=== PATIENT | male | born 1950 | race Caucasian/White ===

== ENCOUNTER 2017-05-05 16:13 | Inpatient (IN) | payer MEDICARE ==
[~2017-05-05] VITALS: Ht 162.6 cm; Wt 74.0 kg
[2017-05-05 16:29] VITALS: BP 106/70; PULSE 72; RESP 16; TEMP 98.8; O2SAT 97
[2017-05-05 17:48] LABS: AUTOMATED NEUTROPHIL # 6.9 TH/MM3 (1.8-7.7); BASOPHIL # 0.1 TH/MM3 (0-0.2); BASOPHIL % 0.8 % (0.0-2.0); EOSINOPHIL # 0.5 TH/MM3 (0-0.4); HEMATOCRIT 43.8 % (39.0-51.0); HEMOGLOBIN 15.4 GM/DL (13.0-17.0); LYMPH % 16.3 % (9.0-44.0); LYMPHOCYTE # 1.8 TH/MM3 (1.0-4.8); MEAN CELL VOLUME 90.9 FL (80.0-100.0); MEAN CORPUSCULAR HEMOGLOBIN 31.9 PG (27.0-34.0); MEAN CORPUSCULAR HGB CONC 35.1 % (32.0-36.0); MEAN PLATELET VOLUME 7.4 FL (7.0-11.0); MONO % 14.2 % (0.0-8.0); MONOCYTE # 1.5 TH/MM3 (0-0.9); NEUT % 63.7 % (16.0-70.0); PLATELET COUNT 301 TH/MM3 (150-450); RED BLOOD COUNT 4.82 MIL/MM3 (4.50-5.90); RED CELL DISTRIBUTION WIDTH 13.5 % (11.6-17.2); WHITE BLOOD COUNT 10.8 TH/MM3 (4.0-11.0)
[2017-05-05 18:03] LABS: ALBUMIN 3.1 GM/DL (3.4-5.0); AST (GOT) 48 U/L (15-37); BICARBONATE 31.7 MEQ/L (21.0-32.0); BLOOD UREA NITROGEN 17 MG/DL (7-18); CALCIUM 9.1 MG/DL (8.5-10.1); CHLORIDE 98 MEQ/L (98-107); CREATININE 1.09 MG/DL (0.60-1.30); GLUCOSE,RANDOM 92 MG/DL (74-106); SODIUM (NA) 136 MEQ/L (136-145)
[2017-05-05 18:04] LABS: ALT (GPT) 112 U/L (12-78)
[2017-05-05 18:06] LABS: ALKALINE PHOSPHATASE 240 U/L (45-117); TOTAL BILIRUBIN ADULT 10.7 MG/DL (0.2-1.0); TOTAL PROTEIN 6.9 GM/DL (6.4-8.2)
[2017-05-05 18:12] LABS: AMORPHOUS SEDIMENT, URINE RARE; BACTERIA, URINE FEW /hpf; BILIRUBIN, URINE LARGE (NEG); BLOOD, URINE NEG (NEG); GLUCOSE,URINE NEG (NEG); KETONE, URINE NEG (NEG); MUCUS URINE MANY /lpf (OCC); NITRITE,URINE NEG (NEG); URINE LEUKOCYTE ESTERASE NEG (NEG)
[2017-05-05 18:14] LABS: URINE COLOR DARK-BROWN (YELLW/STRAW)
--- NOTE | 2017-05-05 18:25 | PD ---
HPI Chief Complaint: Abdominal Pain Time Seen by Provider: 18:25 Travel History International Travel<30 days: No Contact w/Intl Traveler<30days: No Traveled to known affect area: No History of Present Illness HPI 66-year-old male came to the emergency room with history of jaundice and abdominal pain. His is here with him and patient says he has been having the symptoms since December 2016. He sees GI Dr. Pfeiffer. Patient is a drinker but did not have alcohol in past 2 weeks. Today his GI specialist sent him over to the surgeon Dr. Kirkland who did blood test in his office and discovered that patient's liver function tests were elevated and urine looked abnormal. He sent the patient to the emergency room to get an MRCP. There was blood test repeated in the triage and the results are back. Patient says his pain is all over the abdomen. He has not had a bowel movement since Wednesday. Patient has been taking liquid tramadol for his abdominal pain. He is awake and answering questions appropriately. Vital signs are within normal limits. No history of nausea vomiting. Stool up until Wednesday was green in color. No aggravating or relieving factors identified for the abdominal pain or any radiation. [facility] Past Medical History Narrative Medical List of his past medical, surgical, social and family history is reviewed from the nursing note. Social History Tobacco Use: Yes Allergies-Medications (Allergen,Severity, Reaction): Coded Allergies: No Known Allergies (Unverified , 05/05/17) Comments No known drug allergies. Reported Meds & Prescriptions Reported Meds & Active Scripts Active Reported Lansoprazole 30 Mg Capdr 30 Mg PO BID Tramadol (Tramadol HCl) 50 Mg Tab 50 Mg PO Q6H PRN Losartan (Losartan Potassium) 50 Mg Tab 50 Mg PO DAILY Narrative Medication Awaiting for the nurse to do the med reconciliation. Review of Systems Except as stated in HPI: all other systems reviewed are Neg Gastrointestinal: Positive: Abdominal Pain, Constipation Physical Exam Narrative GENERAL: Awake, alert, moderate distress SKIN: Focused skin assessment warm/dry. Jaundice HEAD: Atraumatic. Normocephalic. EYES: Pupils equal and round. Scleral icterus. No injection or drainage. ENT: No nasal bleeding or discharge. Mucous membranes pink and moist. NECK: Trachea midline. No JVD. CARDIOVASCULAR: Regular rate and rhythm. No murmur appreciated. RESPIRATORY: No accessory muscle use. Clear to auscultation. Breath sounds equal bilaterally. GASTROINTESTINAL: Abdomen soft, non-tender, nondistended. Questionable hepatomegaly 3 fingers beneath the costal margin MUSCULOSKELETAL: No obvious deformities. No clubbing. No cyanosis. No edema. NEUROLOGICAL: Awake and alert. No obvious cranial nerve deficits. Motor grossly within normal limits. Normal speech. PSYCHIATRIC: Appropriate mood and affect; insight and judgment normal. Data Data Last Documented VS Orders Orders Complete Blood Count With Diff (05/05/17 16:31) Comprehensive Metabolic Panel (05/05/17 16:31) Lipase (05/05/17 16:31) Urinalysis - C+S If Indicated (05/05/17 16:31) Ct Abd/Pel W Iv Contrast(Rout) (05/05/17 ) Us Abdomen Liver (05/05/17 ) Sodium Chlor 0.9% 1000 Ml Inj (Ns 1000 M (05/05/17 18:30) Afp, Tumor Marker (05/05/17 18:25) Direct Bilirubin (05/05/17 18:25) Admit Order (Ed Use Only) (05/05/17 18:48) Labs Laboratory Tests Test 05/05/17 17:27 05/05/17 17:39 White Blood Count 10.8 TH/MM3 Red Blood Count 4.82 MIL/MM3 Hemoglobin 15.4 GM/DL Hematocrit 43.8 % Mean Corpuscular Volume 90.9 FL Mean Corpuscular Hemoglobin 31.9 PG Mean Corpuscular Hemoglobin Concent 35.1 % Red Cell Distribution Width 13.5 % Platelet Count 301 TH/MM3 Mean Platelet Volume 7.4 FL Neutrophils (%) (Auto) 63.7 % Lymphocytes (%) (Auto) 16.3 % Monocytes (%) (Auto) 14.2 % Eosinophils (%) (Auto) 5.0 % Basophils (%) (Auto) 0.8 % Neutrophils # (Auto) 6.9 TH/MM3 Lymphocytes # (Auto) 1.8 TH/MM3 Monocytes # (Auto) 1.5 TH/MM3 Eosinophils # (Auto) 0.5 TH/MM3 Basophils # (Auto) 0.1 TH/MM3 CBC Comment DIFF FINAL Differential Comment Blood Urea Nitrogen 17 MG/DL Creatinine 1.09 MG/DL Random Glucose 92 MG/DL Total Protein 6.9 GM/DL Albumin 3.1 GM/DL Calcium Level 9.1 MG/DL Alkaline Phosphatase 240 U/L Aspartate Amino Transf (AST/SGOT) 48 U/L Alanine Aminotransferase (ALT/SGPT) 112 U/L Total Bilirubin 10.7 MG/DL Sodium Level 136 MEQ/L Potassium Level 3.7 MEQ/L Chloride Level 98 MEQ/L Carbon Dioxide Level 31.7 MEQ/L Anion Gap 6 MEQ/L Lipase 2477 U/L Urine Color DARK-BROWN Urine Turbidity CLEAR Urine pH 6.0 Urine Specific [place] 1.027 Urine Protein 30 mg/dL Urine Glucose (UA) NEG mg/dL Urine Ketones NEG mg/dL Urine Occult Blood NEG Urine Nitrite NEG Urine Bilirubin LARGE Urine Urobilinogen 2.0 MG/DL Urine Leukocyte Esterase NEG Urine RBC 1 /hpf Urine WBC 1 /hpf Urine Amorphous Sediment RARE Urine Bacteria FEW /hpf Urine Mucus MANY /lpf Microscopic Urinalysis Comment CULT NOT INDICATED MDM Medical Decision Making Medical Screen Exam Complete: Yes Emergency Medical Condition: Yes Medical Record Reviewed: Yes Differential Diagnosis Obstructive jaundice, liver cancer, biliary duct obstruction, hepatitis Narrative Course 6:55 PM all the blood test results are back and the liver enzymes are elevated but the bilirubin is markedly elevated. I have ordered a CT scan of his abdomen and pelvis and liver ultrasound. I discussed the case with the hospitalist was accepted the patient. Procedures EKG Prior to Arrival: No Diagnosis Primary Impression: Abdominal pain Qualified Codes: R10.84 - Generalized abdominal pain Additional Impressions: Hyperbilirubinemia Elevated liver function tests Admitting Information Admitting Physician Requests: Admit Scripts Metronidazole (Metronidazole) 500 Mg Tab 500 MG PO TID for Infection for 7 Days, TAB 0 Refills Prov: Terrence Clark MD 05/08/17 Ciprofloxacin (Ciprofloxacin) 500 Mg Tab 500 MG PO BID for Infection for 7 Days, #14 TAB 0 Refills Prov: Terrence Clark MD 05/08/17 Hilario Tran MD May 05, 2017 18:25
[2017-05-05] MEDS ORDERED: SODIUM CHLOR 0.9% 1000 ML INJ 1,000 ML IV ONE (18:30)
[2017-05-05] MEDS ORDERED: IOHEXOL 350 MG/ML 10 ML VIAL (for RAD DIAG) IVCONTRAST ONE (19:04)
[2017-05-05] MEDS ORDERED: TRAM50TA PO (19:07)
[2017-05-05] MEDS ORDERED: CIPR500T2 PO (19:07)
[2017-05-05] MEDS ORDERED: LANS30CA PO (19:07)
[2017-05-05] MEDS ORDERED: METR1TAB76 PO (19:07)
[2017-05-05] MEDS ORDERED: LOSA50TA PO (19:07)
--- NOTE | 2017-05-05 19:13 | RADRPT ---
EXAM DATE/TIME: 05/05/2017 18:45 [facility] COMPARISON: No previous studies available for comparison. INDICATIONS : Nausea, vomiting and abdominal pain since Wednesday. IV CONTRAST: 100 cc Omnipaque 350 (iohexol) IV ORAL CONTRAST: No oral contrast ingested. RADIATION DOSE: 6.69 CTDIvol (mGy) MEDICAL HISTORY : None SURGICAL HISTORY : None. ENCOUNTER: Initial ACUITY: 4 - 6 days PAIN SCALE: 0/10 LOCATION: abdomen TECHNIQUE: Volumetric scanning of the abdomen and pelvis was performed. Using automated exposure control and ad justment of the mA and/or kV according to patient size, radiation dose was kept as low as reasonably achievable to obtain optimal diagnostic quality images. DICOM format image data is available electro nically for review and comparison. FINDINGS: LOWER LUNGS: The visualized lower lungs are clear. LIVER: Liver has a homogeneous pattern of enhancement. There is a solitary 8mm oval hypodense area in the r ight lobe which probably represents a cyst. There is moderate distention of the central intrahepatic biliary system and dilation of the common bile duct down to the iliac. The cystic duct is also prom inent without evidence of calcified stones in the gallbladder or extrahepatic biliary system. The co mmon bile duct measures up to 12 mm in size. SPLEEN: Normal size without lesion. PANCREAS: Within normal limits. KIDNEYS: Normal in size and shape. There is no mass, stone or hydronephrosis. ADRENAL GLANDS: Within normal limits. VASCULAR: There is no aortic aneurysm. BOWEL/MESENTERY: No dilated loops of small or large bowel. There is interposition of the hepatic flexure of the colon underneath the anterior right hemidiaphragm. Mild amount of stool and gas seen throughout the colon . A few scattered diverticula in the sigmoid colon without radiographic evidence of diverticulitis. ABDOMINAL WALL: Within normal limits. RETROPERITONEUM: There is no lymphadenopathy. BLADDER: No wall thickening or mass. REPRODUCTIVE: Within normal limits. INGUINAL: There is no lymphadenopathy or hernia. MUSCULOSKELETAL: Within normal limits for patient age. CONCLUSION: 1. Dilation of the intra-and extrahepatic biliary system although a down to the ampulla without evide nce of calcified stones. 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 Dax Wells MD on May 05, 2017 at 19:07 Board Certified Radiologist. This report was verified electronically.
[2017-05-05] MEDS ORDERED: traMADol HCL 50 MG TAB PO PRN (19:15)
[2017-05-05] MEDS ORDERED: NALOXONE HCL 0.4 MG/ML AMP IV PUSH PRN (19:15)
[2017-05-05] MEDS ORDERED: SENNOSIDES 8.6 MG TAB PO PRN (19:15)
[2017-05-05] MEDS ORDERED: ONDANSETRON HCL 4 MG/2 ML VIAL IVP PRN (19:15)
[2017-05-05] MEDS ORDERED: BISACODYL 10 MG SUPP RECTAL PRN (19:15)
[2017-05-05] MEDS ORDERED: MAGNESIUM HYDROXIDE SUSP 30 ML CUP PO PRN (19:15)
[2017-05-05] MEDS ORDERED: LACTULOSE SYRUP 20 GM/30 ML CUP PO PRN (19:15)
[2017-05-05] MEDS ORDERED: SODIUM CHLORIDE 0.9% FLUSH 10 ML FLUSH IV FLUSH PRN (19:15)
--- NOTE | 2017-05-05 20:46 | RADRPT ---
EXAM DATE/TIME: 05/05/2017 19:39 [facility] COMPARISON: No previous studies available for comparison. INDICATIONS : Increased lab values. MEDICAL HISTORY : Hypertension. SURGICAL HISTORY : Left wrist surgery. ENCOUNTER: Initial ACUITY: 1 day PAIN SCORE: 3/10 LOCATION: Abdomen. MEASUREMENTS: LIVER: 15.6 cm length COMMON DUCT: Non-visualized RIGHT KIDNEY: 11.3 x 5.3 x 5.8 cm SPLEEN: 11.2 cm length FINDINGS: LIVER: Focal mildly lobular hyper echogenic lesion in the anterior right lobe liver measuring 1.8 x 1.2 x 1. 5 cm, possibly representing hemangioma. No other lesions seen. No intrahepatic biliary ductal dilat ation. Hepatopedal flow seen in the portal vein. COMMON DUCT: Not identified GALLBLADDER: Echogenic sludge is seen in the lumen of the pharynx. No shadowing stones. No pericholecystic fluid . PANCREAS: Not well seen. RIGHT KIDNEY: No hydronephrosis, stone or mass. SPLEEN: No focal lesion. CONCLUSION: 1. Echogenic sludge within the gallbladder. No shadowing stones seen. 2. Probable hemangioma in the right lobe of the liver. Dax Wells MD on May 05, 2017 at 20:42 Board Certified Radiologist. This report was verified electronically.
--- NOTE | 2017-05-05 21:01 | HHI.HP ---
HPI Service [facility] Hospitalists Primary Care Physician Gamal Aguilera M.D. Admission Diagnosis Jaundice, elevated liver function Chief Complaint: sent by general surgery for gi evaluatuion possible ercp Travel History International Travel<30 Days: No Contact w/Intl Traveler <30 Da: No Traveled to Known Affected Are: No History of Present Illness 66-year-old male came to the emergency room with history of jaundice and abdominal pain. His is here with him and patient says he has been having the symptoms since December 2016. He seen GI Dr. Pfeiffer. Patient is a drinker but did not have alcohol in past 2 weeks. Today his GI specialist sent him over to the surgeon Dr. Kirkland who did blood test in his office and discovered that patient's liver function tests were elevated and urine looked abnormal. He sent the patient to the emergency room to get an MRCP. There was blood test repeated in the triage and the results are back. Patient says his pain is all over the abdomen. He has not had a bowel movement since Wednesday. Patient has been taking liquid tramadol for his abdominal pain. He is awake and answering questions appropriately. Vital signs are within normal limits. No history of nausea vomiting. Stool up until Wednesday was green in color. No aggravating or relieving factors identified for the abdominal pain or any radiation. Labs consistent with possible obstructive jaundice with dilated ducts on CT Past Family Social History Past Medical History abdominal pain hypertension Past Surgical History wrist surgery Reported Medications losartan,flagyl,tramadol,cipro protonix Allergies: Coded Allergies: No Known Allergies (Unverified , 05/05/17) Social History drinks etoh 1 drink last 2 weeks Physical Exam Vital Signs Vital Signs Date Time Temp Pulse Resp B/P (MAP) Pulse Ox O2 Delivery O2 Flow Rate FiO2 05/05/17 16:29 98.8 72 16 106/70 (82) 97 Physical Exam GENERAL: This is a well-nourished, well-developed patient, in no apparent distress. SKIN: No rashes, ecchymoses or lesions. Cool and dry. yellow discoloration HEAD: Atraumatic. Normocephalic. No temporal or scalp tenderness. EYES: Pupils equal round and reactive. Extraocular motions intact. No scleral icterus. No injection or drainage. ENT: Nose without bleeding, purulent drainage or septal hematoma. Throat without erythema, tonsillar hypertrophy or exudate. Uvula midline. Airway patent. NECK: Trachea midline. No JVD or lymphadenopathy. Supple, nontender, no meningeal signs. CARDIOVASCULAR: Regular rate and rhythm without murmurs, gallops, or rubs. RESPIRATORY: Clear to auscultation. Breath sounds equal bilaterally. No wheezes , rales, or rhonchi. GASTROINTESTINAL: Abdomen soft, non-tender, nondistended. No hepato-splenomegaly , or palpable masses. No guarding. MUSCULOSKELETAL: Extremities without clubbing, cyanosis, or edema. No joint tenderness, effusion, or edema noted. No calf tenderness. Negative Homans sign bilaterally. NEUROLOGICAL: Awake and alert. Cranial nerves II through XII intact. Motor and sensory grossly within normal limits. Five out of 5 muscle strength in all muscle groups. Normal speech. Laboratory Laboratory Tests Test 05/05/17 17:27 05/05/17 17:39 05/05/17 19:10 White Blood Count 10.8 Red Blood Count 4.82 Hemoglobin 15.4 Hematocrit 43.8 Mean Corpuscular Volume 90.9 Mean Corpuscular Hemoglobin 31.9 Mean Corpuscular Hemoglobin Concent 35.1 Red Cell Distribution Width 13.5 Platelet Count 301 Mean Platelet Volume 7.4 Neutrophils (%) (Auto) 63.7 Lymphocytes (%) (Auto) 16.3 Monocytes (%) (Auto) 14.2 Eosinophils (%) (Auto) 5.0 Basophils (%) (Auto) 0.8 Neutrophils # (Auto) 6.9 Lymphocytes # (Auto) 1.8 Monocytes # (Auto) 1.5 Eosinophils # (Auto) 0.5 Basophils # (Auto) 0.1 CBC Comment DIFF FINAL Differential Comment Blood Urea Nitrogen 17 Creatinine 1.09 Random Glucose 92 Total Protein 6.9 Albumin 3.1 Calcium Level 9.1 Alkaline Phosphatase 240 Aspartate Amino Transf (AST/SGOT) 48 Alanine Aminotransferase (ALT/SGPT) 112 Total Bilirubin 10.7 Sodium Level 136 Potassium Level 3.7 Chloride Level 98 Carbon Dioxide Level 31.7 Anion Gap 6 Lipase 2477 Urine Color DARK-BROWN Urine Turbidity CLEAR Urine pH 6.0 Urine Specific [place] 1.027 Urine Protein 30 Urine Glucose (UA) NEG Urine Ketones NEG Urine Occult Blood NEG Urine Nitrite NEG Urine Bilirubin LARGE Urine Urobilinogen 2.0 Urine Leukocyte Esterase NEG Urine RBC 1 Urine WBC 1 Urine Amorphous Sediment RARE Urine Bacteria FEW Urine Mucus MANY Microscopic Urinalysis Comment CULT NOT INDICATED Direct Bilirubin 8.4 Tumor Marker Alpha Fetoprotein 2.8 Result Diagram: 05/05/17 1727 05/05/17 1727 Imaging Last 24 hours Impressions Liver Ultrasound 05/05/17 0000 Signed Impressions: Service Date/Time: Friday, May 05, 2017 19:39 - CONCLUSION: 1. Echogenic sludge within the gallbladder. No shadowing stones seen. 2. Probable hemangioma in the right lobe of the liver. Dax Wells MD Abdomen/Pelvis CT 05/05/17 0000 Signed Impressions: Service Date/Time: Friday, May 05, 2017 18:45 - CONCLUSION: 1. Dilation of the intra-and extrahepatic biliary system although a down to the ampulla without evidence of calcified stones. 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 Dax Wells MD Capfranklini VTE Risk Assessment Caprini VTE Risk Assessment: No/Low Risk (score <= 1) Caprini Risk Assessment Model Point Value = 1 Point Value = 2 Point Value = 3 Point Value = 5 Age 41-60 Minor surgery BMI > 25 kg/m2 Swollen legs Varicose veins or History of unexplained or recurrent spontaneous Oral contraceptives or hormone replacement Sepsis (< 1 month) Serious lung disease, including pneumonia (< 1 month) Abnormal pulmonary function Acute myocardial infarction Congestive heart failure (< 1 month) History of inflammatory bowel disease Medical patient at bed rest Age 61-74 Arthroscopic surgery Major open surgery (> 45 min) Laparoscopic surgery (> 45 min) Malignancy Confined to bed (> 72 hours) Immobilizing plaster cast Central venous access Age >= 75 History of VTE Family history of VTE Factor V Leiden Prothrombin [id number] Lupus anticoagulant Anticardiolipin antibodies Elevated serum homocysteine Heparin-induced thrombocytopenia Other congenital or acquired thrombophilia Stroke (< 1 month) Elective arthroplasty Hip, pelvis, or leg fracture Acute spinal cord injury (< 1 month) Prophylaxis Regimen Total Risk Factor Score Risk Level Prophylaxis Regimen 0-1 Low Early ambulation 2 Moderate Order ONE of the following: *Sequential Compression Device (SCD) *Heparin 5000 units SQ BID 3-4 Higher Order ONE of the following medications: *Heparin 5000 units SQ TID *Enoxaparin/Lovenox 40 mg SQ daily (WT < 150 kg, CrCl > 30 mL/min) *Enoxaparin/Lovenox 30 mg SQ daily (WT < 150 kg, CrCl > 10-29 mL/min) *Enoxaparin/Lovenox 30 mg SQ BID (WT < 150 kg, CrCl > 30 mL/min) AND/OR *Sequential Compression Device (SCD) 5 or more Highest Order ONE of the following medications: *Heparin 5000 units SQ TID (Preferred with Epidurals) *Enoxaparin/Lovenox 40 mg SQ daily (WT < 150 kg, CrCl > 30 mL/min) *Enoxaparin/Lovenox 30 mg SQ daily (WT < 150 kg, CrCl > 10-29 mL/min) *Enoxaparin/Lovenox 30 mg SQ BID (WT < 150 kg, CrCl > 30 mL/min) AND *Sequential Compression Device (SCD) Assessment and Plan Problem List: (1) Hyperbilirubinemia ICD Codes: E80.6 - Other disorders of bilirubin metabolism Status: Acute Plan: GI consult NPO after midnight IV fluid (2) Elevated liver function tests ICD Codes: R79.89 - Other specified abnormal findings of blood chemistry Status: Acute Plan: as above may need mrcp (3) Abdominal pain ICD Codes: R10.9 - Unspecified abdominal pain Status: Acute Plan: GI consult Assessment and Plan further plan as case develops Code Status full Discussed Condition With patient Physician Certification 2 Midnight Certification Type: Admission for Inpatient Services Order for Inpatient Services The services are ordered in accordance with Medicare regulations or non- Medicare payer requirements, as applicable. In the case of services not specified as inpatient-only, they are appropriately provided as inpatient services in accordance with the 2-midnight benchmark. Estimated LOS (days): 3 3 days is the estimated time the patient will need to remain in the hospital, assuming treatment plan goals are met and no additional complications. Post-Hospital Plan: Not yet determined Problem Qualifiers (1) Abdominal pain: Qualified Codes: R10.84 - Generalized abdominal pain Cale Pruett MD May 05, 2017 21:01
[2017-05-05 23:02] VITALS: BP 138/83; PULSE 78; RESP 18; O2SAT 98
[2017-05-05] MEDS: SODIUM CHLORIDE 0.9% FLUSH 10 ML FLUSH IV FLUSH SCH (23:07)
[2017-05-05] MEDS: CIPROFLOXACIN 400 MG PREMIX 200 ML IV SCH (23:07)
[2017-05-05] MEDS: metroNIDAZOLE 500 MG INJ 100 ML IV SCH (23:07)
[2017-05-05] MEDS: traMADol HCL 50 MG TAB PO PRN (23:07)
[2017-05-05] MEDS: PANTOPRAZOLE SODIUM 40 MG VIAL IV PUSH SCH (23:07)
[2017-05-05] MEDS: DOCUSATE SODIUM 50 MG/SENNA 8.6 MG TAB PO SCH (23:07)
[2017-05-06] VITALS (9 sets, daily range): BP systolic 128–140; BP diastolic 69–81; PULSE 62–86; RESP 16–20; TEMP 97.8–98.1; O2SAT 95–99
[2017-05-06] MEDS: metroNIDAZOLE 500 MG INJ 100 ML IV SCH ×3 (05:11→21:20)
[2017-05-06] MEDS: LOSARTAN 50 MG TAB PO SCH (07:36)
[2017-05-06] MEDS: DOCUSATE SODIUM 50 MG/SENNA 8.6 MG TAB PO SCH ×2 (07:36→21:27)
[2017-05-06] MEDS: SODIUM CHLORIDE 0.9% FLUSH 10 ML FLUSH IV FLUSH SCH ×2 (09:18→21:21)
[2017-05-06] MEDS: traMADol HCL 50 MG TAB PO PRN ×2 (09:23→21:21)
[2017-05-06] MEDS: CIPROFLOXACIN 400 MG PREMIX 200 ML IV SCH ×2 (09:23→23:04)
--- NOTE | 2017-05-06 09:29 | HHI.PR ---
Subjective Remarks Pt stil having abdominal pain Urine is not as dark No nausea/vomiting Pt had a BM this morning which was soft. Objective Vitals Vital Signs Date Time Temp Pulse Resp B/P (MAP) Pulse Ox O2 Delivery O2 Flow Rate FiO2 05/06/17 07:30 98.0 67 16 129/69 (89) 97 Room Air 05/06/17 07:30 16 05/06/17 02:39 62 16 95 Room Air 05/05/17 23:02 78 18 138/83 (101) 98 Room Air 05/05/17 16:29 98.8 72 16 106/70 (82) 97 Result Diagram: 05/05/17 1727 05/05/17 1727 Other Results Laboratory Tests Test 05/05/17 17:27 05/05/17 17:39 05/05/17 19:10 White Blood Count 10.8 TH/MM3 Red Blood Count 4.82 MIL/MM3 Hemoglobin 15.4 GM/DL Hematocrit 43.8 % Mean Corpuscular Volume 90.9 FL Mean Corpuscular Hemoglobin 31.9 PG Mean Corpuscular Hemoglobin Concent 35.1 % Red Cell Distribution Width 13.5 % Platelet Count 301 TH/MM3 Mean Platelet Volume 7.4 FL Neutrophils (%) (Auto) 63.7 % Lymphocytes (%) (Auto) 16.3 % Monocytes (%) (Auto) 14.2 % Eosinophils (%) (Auto) 5.0 % Basophils (%) (Auto) 0.8 % Neutrophils # (Auto) 6.9 TH/MM3 Lymphocytes # (Auto) 1.8 TH/MM3 Monocytes # (Auto) 1.5 TH/MM3 Eosinophils # (Auto) 0.5 TH/MM3 Basophils # (Auto) 0.1 TH/MM3 CBC Comment DIFF FINAL Differential Comment Blood Urea Nitrogen 17 MG/DL Creatinine 1.09 MG/DL Random Glucose 92 MG/DL Total Protein 6.9 GM/DL Albumin 3.1 GM/DL Calcium Level 9.1 MG/DL Alkaline Phosphatase 240 U/L Aspartate Amino Transf (AST/SGOT) 48 U/L Alanine Aminotransferase (ALT/SGPT) 112 U/L Total Bilirubin 10.7 MG/DL Sodium Level 136 MEQ/L Potassium Level 3.7 MEQ/L Chloride Level 98 MEQ/L Carbon Dioxide Level 31.7 MEQ/L Anion Gap 6 MEQ/L Lipase 2477 U/L Urine Color DARK-BROWN Urine Turbidity CLEAR Urine pH 6.0 Urine Specific [place] 1.027 Urine Protein 30 mg/dL Urine Glucose (UA) NEG mg/dL Urine Ketones NEG mg/dL Urine Occult Blood NEG Urine Nitrite NEG Urine Bilirubin LARGE Urine Urobilinogen 2.0 MG/DL Urine Leukocyte Esterase NEG Urine RBC 1 /hpf Urine WBC 1 /hpf Urine Amorphous Sediment RARE Urine Bacteria FEW /hpf Urine Mucus MANY /lpf Microscopic Urinalysis Comment CULT NOT INDICATED Direct Bilirubin 8.4 MG/DL Tumor Marker Alpha Fetoprotein 2.8 NG/ML Imaging Last 24 hours Impressions Liver Ultrasound 05/05/17 0000 Signed Impressions: Service Date/Time: Friday, May 05, 2017 19:39 - CONCLUSION: 1. Echogenic sludge within the gallbladder. No shadowing stones seen. 2. Probable hemangioma in the right lobe of the liver. Dax Wells MD Abdomen/Pelvis CT 05/05/17 0000 Signed Impressions: Service Date/Time: Friday, May 05, 2017 18:45 - CONCLUSION: 1. Dilation of the intra-and extrahepatic biliary system although a down to the ampulla without evidence of calcified stones. 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 Dax Wells MD Objective Remarks General: NAD, AAOx3 Chest: CTA Cardiac: Regular Abd: +BS, soft ND/NT Ext: No edema A/P Problem List: (1) Hyperbilirubinemia ICD Codes: E80.6 - Other disorders of bilirubin metabolism Status: Acute Plan: - Pt is a 66 y/o male who was sent to the ED on 05/05/17 for jaundice and abdominal pain. - The pt has reportedly been having the symptoms since December 2016. - He follows as an outpt with Dr. 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 - Pt has hx of Hepatitis C and is reportedly a drinker but has not have alcohol in past 6 days. - He was seen by Dr. Kirkland on 05/05/17 who did blood test in his office and his labs on 05/05 noted TBili 11.3, AST 56, ALT 127, AlkPhos 215 and Lipase 3004. - Pt had Liver US (05/05) --> Echogenic sludge within the gallbladder. No shadowing stones seen. Probable hemangioma in the right lobe of the liver. - CT Abd/pelvis (05/05) --> Dilation of the intra-and extrahepatic biliary system although a down to the ampulla without evidence of calcified stones. 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 - Repeat labs in the ED noted TBili 10.7, DBili 8.4, AST 48, ALT 112, AlkPhos 240, Lipase 2477 - GI is consulted - Pt is NPO - Start IVF - Repeat LFTs and Lipase now and in AM - Supportive care (2) Elevated liver function tests ICD Codes: R79.89 - Other specified abnormal findings of blood chemistry Status: Acute Plan: - As above (3) Abdominal pain ICD Codes: R10.9 - Unspecified abdominal pain Status: Acute Plan: - As above - Pt was started on Cipro and Flagyl IV at admission - Ultram PRN for pain (4) Hepatitis C ICD Codes: B19.20 - Unspecified viral hepatitis C without hepatic coma Status: Chronic Plan: - Pt has not started on Harvoni yet for Hep C treatment as an outpt - He reports that his last alcoholic beverage was about 6 days ago. Assessment and Plan Patient examined. Assessment and plan formulated with Marianne Bhatt PA-C. I agree with the above. cholelithiasis. increased lft. trending down mrcp to evaluate for residual stone/sludge in cbd. Problem Qualifiers (1) Abdominal pain: Qualified Codes: R10.84 - Generalized abdominal pain Marianne Bhatt May 06, 2017 09:29 Terrence Clark MD May 06, 2017 14:16
[2017-05-06 10:02] LABS: TOTAL BILIRUBIN ADULT 8.9 MG/DL (0.2-1.0); TOTAL PROTEIN 6.1 GM/DL (6.4-8.2)
[2017-05-06 10:04] LABS: ALBUMIN 2.7 GM/DL (3.4-5.0); DIRECT BILIRUBIN ADULT 7.2 MG/DL (0.0-0.2); INDIRECT BILIRUBIN 1.7 MG/DL (0.0-0.8)
[2017-05-06] MEDS: SODIUM CHLOR 0.9% 1000 ML INJ 1,000 ML IV SCH ×2 (10:37→23:05)
--- NOTE | 2017-05-06 10:57 | PD.CONS ---
HPI History of Present Illness This is a 66 year old male with hep C who presented to ER for abd pain and elevated LFTs. His pain started 5 days ago along with some n/v and chills. Pain has been constant. He noticed yellowish skin and eyes, darkened urine. No n/v at this time. Denies blood in stool, tarry stool. 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 He has had 3 episodes of similar abd pain in the last 4 months but has not had the jaundice until recently. He follows with Dr Pfeiffer and had an EGD and colonoscopy in [place] 3 months ago with finding of colon polyp and otherwise no abnormal findings. He has Hep C and is currently undergoing work up for treatment. He does consume ETOH, 10-12 drinks weekly. (Cristina Salomon) PFSH Past Medical History HTN acid reflux Past Surgical History wrist surgery (Cristina Salomon) Coded Allergies: No Known Allergies (Unverified , 05/05/17) Family History HTN DM leukemia Social History 10-12 alcoholic drinks weekly occasional cigar denies illicit drug use (Cristina Salomon) Review of Systems Constitutional: COMPLAINS OF: Weight loss, Chills Endocrine: DENIES: Polydipsia Eyes: DENIES: Blurred vision Ears, nose, mouth, throat: DENIES: Hearing loss Respiratory: DENIES: Cough Cardiovascular: DENIES: Chest pain Gastrointestinal: COMPLAINS OF: Abdominal pain, Nausea, Vomiting, DENIES: Black stools, Bloody stools, Diarrhea, Hematemesis Genitourinary: DENIES: Hematuria Musculoskeletal: DENIES: Muscle aches Integumentary: COMPLAINS OF: Jaundice Hematologic/lymphatic: DENIES: Bruising Immunologic/allergic: DENIES: Eczema Neurologic: DENIES: Abnormal gait Psychiatric: DENIES: Anxiety (Cristina Salomon) GI Exam Vitals I&O Vital Signs Date Time Temp Pulse Resp B/P (MAP) Pulse Ox O2 Delivery O2 Flow Rate FiO2 05/06/17 10:23 16 05/06/17 09:57 98.0 70 16 130/81 (97) 99 Room Air 05/06/17 07:30 98.0 67 16 129/69 (89) 97 Room Air 05/06/17 07:30 16 05/06/17 02:39 62 16 95 Room Air 05/05/17 23:02 78 18 138/83 (101) 98 Room Air 05/05/17 16:29 98.8 72 16 106/70 (82) 97 I/O 05/05/17 05/05/17 05/05/17 05/06/17 05/06/17 05/06/17 07:00 15:00 23:00 07:00 15:00 23:00 Intake Total 1000 ml 400 ml 200 ml Balance 1000 ml 400 ml 200 ml Intake IV Total 1000 ml 400 ml 200 ml # Voids 1 Imaging Last Impressions Liver Ultrasound 05/05/17 0000 Signed Impressions: Service Date/Time: Friday, May 05, 2017 19:39 - CONCLUSION: 1. Echogenic sludge within the gallbladder. No shadowing stones seen. 2. Probable hemangioma in the right lobe of the liver. Dax Wells MD Abdomen/Pelvis CT 05/05/17 0000 Signed Impressions: Service Date/Time: Friday, May 05, 2017 18:45 - CONCLUSION: 1. Dilation of the intra-and extrahepatic biliary system although a down to the ampulla without evidence of calcified stones. 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 Dax Wells MD Laboratory Test 05/05/17 17:27 05/05/17 17:39 05/05/17 19:10 05/06/17 09:30 White Blood Count 10.8 TH/MM3 Red Blood Count 4.82 MIL/MM3 Hemoglobin 15.4 GM/DL Hematocrit 43.8 % Mean Corpuscular Volume 90.9 FL Mean Corpuscular Hemoglobin 31.9 PG Mean Corpuscular Hemoglobin Concent 35.1 % Red Cell Distribution Width 13.5 % Platelet Count 301 TH/MM3 Mean Platelet Volume 7.4 FL Neutrophils (%) (Auto) 63.7 % Lymphocytes (%) (Auto) 16.3 % Monocytes (%) (Auto) 14.2 % Eosinophils (%) (Auto) 5.0 % Basophils (%) (Auto) 0.8 % Neutrophils # (Auto) 6.9 TH/MM3 Lymphocytes # (Auto) 1.8 TH/MM3 Monocytes # (Auto) 1.5 TH/MM3 Eosinophils # (Auto) 0.5 TH/MM3 Basophils # (Auto) 0.1 TH/MM3 CBC Comment DIFF FINAL Differential Comment Blood Urea Nitrogen 17 MG/DL Creatinine 1.09 MG/DL Random Glucose 92 MG/DL Total Protein 6.9 GM/DL 6.1 GM/DL Albumin 3.1 GM/DL 2.7 GM/DL Calcium Level 9.1 MG/DL Alkaline Phosphatase 240 U/L 198 U/L Aspartate Amino Transf (AST/SGOT) 48 U/L 36 U/L Alanine Aminotransferase (ALT/SGPT) 112 U/L 85 U/L Total Bilirubin 10.7 MG/DL 8.9 MG/DL Sodium Level 136 MEQ/L Potassium Level 3.7 MEQ/L Chloride Level 98 MEQ/L Carbon Dioxide Level 31.7 MEQ/L Anion Gap 6 MEQ/L Lipase 2477 U/L 315 U/L Urine Color DARK-BROWN Urine Turbidity CLEAR Urine pH 6.0 Urine Specific Barrett 1.027 Urine Protein 30 mg/dL Urine Glucose (UA) NEG mg/dL Urine Ketones NEG mg/dL Urine Occult Blood NEG Urine Nitrite NEG Urine Bilirubin LARGE Urine Urobilinogen 2.0 MG/DL Urine Leukocyte Esterase NEG Urine RBC 1 /hpf Urine WBC 1 /hpf Urine Amorphous Sediment RARE Urine Bacteria FEW /hpf Urine Mucus MANY /lpf Microscopic Urinalysis Comment CULT NOT INDICATED Direct Bilirubin 8.4 MG/DL 7.2 MG/DL Tumor Marker Alpha Fetoprotein 2.8 NG/ML Indirect Bilirubin 1.7 MG/DL Physical Examination HEENT: PERRL; normocephalic; atraumatic; +icterus CHEST: CTA CARDIAC: RRR ABDOMEN: Soft, nondistended, epigastric and LUQ TTP; no hepatosplenomegaly; bowel sounds are present in all four quadrants. EXTREMITIES: No clubbing, cyanosis, or edema. SKIN: Normal; no rash; + jaundice. RACE STARTER: No focal deficits; alert and oriented times three. (Cristina Salomon) Assessment and Plan Plan ASSESSMENT - abd pain, jaundice, elevated lipase - poss gallstone pancreatitis. lipase now WNL. LFTs elevated obstructive pattern. CT showed bilatation biliary system. US showed GB sludge - hep c - pursuing work up for tx as outpt PLAN - MRCP - monitor labs - ETOH cessation - f/u as outpt for hep c tx - further recs to follow pt seen by myself and Dr Hall and this note is on his behalf (Cristina Salomon) Physician Comments MRCP reviewed, plan for ERCP. Risk, benefit and possible complication explained. Thank you for the consult. (Lana Hall MD) Cristina Salomon May 06, 2017 10:57 Lana Hall MD May 07, 2017 06:12
[2017-05-06 12:19] LABS: BICARBONATE 29.7 MEQ/L (21.0-32.0); CALCIUM 7.9 MG/DL (8.5-10.1); CREATININE 0.9 MG/DL (0.60-1.30)
--- NOTE | 2017-05-06 15:25 | RADRPT ---
EXAM DATE/TIME: 05/06/2017 14:11 [facility] COMPARISON: US ABDOMEN - LIVER, May 05, 2017, 19:39. CT ABDOMEN & PELVIS W CONTRAST, May 05, 2017, 18:45. INDICATIONS : Abdominal pain. Juandice. MEDICAL HISTORY : Hypertension. SURGICAL HISTORY : ORIF left wrist ENCOUNTER: Subsequent ACUITY: 4-6 days PAIN SCORE: 4/10 LOCATION: Bilateral upper quadrant abdomen TECHNIQUE: Multiplanar, multisequence magnetic resonance imaging of the abdomen was performed. High-resolution 3D dataset was utilized to reconstruct maximum-intensity projection (MIP) images. FINDINGS: INTRAHEPATIC BILE DUCTS: Within normal limits. No significant anatomical variant is present. EXTRAHEPATIC BILE DUCTS: The common bile duct measures 1.0 cm No stone or filling defect is identified. GALLBLADDER: There is some layering sludge within the gallbladder. However, no definite stones are seen. The gallb ladder wall does not appear to be thickened. LIVER: Normal size and signal intensity. No concerning liver lesion is identified on this non-contrast exam. There does appear to be a few scattered subcentimeter hepatic cysts. There is a 1.2 cm high signal l esion in the right lobe which on the ultrasound is suggestive of a hemangioma. PANCREAS: The main pancreatic duct is normal in size. There is no significant anatomical variant. Signal inte nsity is within normal limits. No mass is visualized on this non-contrast exam. OTHER: The remaining visualized structures demonstrate no acute abnormality on this non-contrast exam. CONCLUSION: 1. There is layering sludge within the gallbladder. No definite stones are demonstrated. 2. There is abnormal dilatation the common bile that measuring approximately 1 cm. No definite intral uminal filling defects are seen. No significant biliary tract dilatation is seen. Recommend ERCP for further evaluation. 3. A few subcentimeter hepatic cysts. Probable 1.2 cm hemangioma right lobe liver. Caleb Xiao MD on May 06, 2017 at 15:17 Board Certified Radiologist. This report was verified electronically.
[2017-05-06] MEDS: PANTOPRAZOLE SODIUM 40 MG VIAL IV PUSH SCH (21:20)
[2017-05-07 00:31] VITALS: BP 134/84; PULSE 74; RESP 18; TEMP 98.7; O2SAT 95
[2017-05-07] MEDS: metroNIDAZOLE 500 MG INJ 100 ML IV SCH ×3 (04:52→20:30)
[2017-05-07 05:13] VITALS: BP 137/74; PULSE 74; RESP 18; TEMP 76.3; O2SAT 98
[2017-05-07] MEDS: SODIUM CHLOR 0.9% 1000 ML INJ 1,000 ML IV SCH ×2 (06:30→14:55)
[2017-05-07] MEDS ORDERED: SODIUM CHLORID 0.9% 500 ML IV PRN (07:15)
[2017-05-07] MEDS ORDERED: POVIDONE IODINE 5% (ANTISEPSIS KIT) 4 APPLICATIONS EACH NARE PRN (07:15)
[2017-05-07] MEDS ORDERED: CHLORHEXIDINE GLUCONATE 2 % 1 PACK (2 CLOTHS) TOPICAL PRN (07:15)
[2017-05-07] MEDS ORDERED: LACTATED RINGER'S 1000 ML IV PRN (07:15)
[2017-05-07 07:39] LABS: INTERNATIONAL NORMALIZED RATIO 1.1 RATIO
[2017-05-07 07:42] VITALS: BP 141/86; PULSE 62; RESP 20; TEMP 97.9; O2SAT 97
[2017-05-07 07:57] LABS: ALBUMIN 2.3 GM/DL (3.4-5.0); ALT (GPT) 80 U/L (12-78); AST (GOT) 52 U/L (15-37); BICARBONATE 28.7 MEQ/L (21.0-32.0); BLOOD UREA NITROGEN 6 MG/DL (7-18); CHLORIDE 105 MEQ/L (98-107); CREATININE 0.67 MG/DL (0.60-1.30); GLOMERULAR FILTRATION RATE 119 ML/MIN (>89); GLUCOSE,RANDOM 92 MG/DL (74-106); SODIUM (NA) 140 MEQ/L (136-145)
[2017-05-07 08:01] LABS: AUTOMATED NEUTROPHIL # 3.1 TH/MM3 (1.8-7.7); BASOPHIL # 0.1 TH/MM3 (0-0.2); BASOPHIL % 1.3 % (0.0-2.0); EOSINOPHIL # 0.7 TH/MM3 (0-0.4); HEMATOCRIT 38.7 % (39.0-51.0); HEMOGLOBIN 13.6 GM/DL (13.0-17.0); LYMPH % 22.3 % (9.0-44.0); LYMPHOCYTE # 1.4 TH/MM3 (1.0-4.8); MEAN CELL VOLUME 90.3 FL (80.0-100.0); MEAN CORPUSCULAR HEMOGLOBIN 31.7 PG (27.0-34.0); MEAN CORPUSCULAR HGB CONC 35.1 % (32.0-36.0); MONO % 13.5 % (0.0-8.0); MONOCYTE # 0.8 TH/MM3 (0-0.9); NEUT % 50.9 % (16.0-70.0); PLATELET COUNT 254 TH/MM3 (150-450); RED BLOOD COUNT 4.28 MIL/MM3 (4.50-5.90); RED CELL DISTRIBUTION WIDTH 13.3 % (11.6-17.2); WHITE BLOOD COUNT 6.2 TH/MM3 (4.0-11.0)
[2017-05-07 08:04] LABS: ALKALINE PHOSPHATASE 164 U/L (45-117); TOTAL BILIRUBIN ADULT 6.8 MG/DL (0.2-1.0); TOTAL PROTEIN 5.5 GM/DL (6.4-8.2)
[2017-05-07] MEDS: SODIUM CHLORIDE 0.9% FLUSH 10 ML FLUSH IV FLUSH SCH ×2 (08:05→20:31)
[2017-05-07] MEDS: LOSARTAN 50 MG TAB PO SCH (08:06)
[2017-05-07] MEDS: DOCUSATE SODIUM 50 MG/SENNA 8.6 MG TAB PO SCH ×2 (08:06→20:13)
[2017-05-07] MEDS: traMADol HCL 50 MG TAB PO PRN (08:08)
[2017-05-07] MEDS: CIPROFLOXACIN 400 MG PREMIX 200 ML IV SCH ×2 (08:11→20:31)
--- NOTE | 2017-05-07 09:22 | HHI.PR ---
Subjective Remarks pain controlled Objective Vitals heart reg lung cta abd snt ext no edema Vital Signs Date Time Temp Pulse Resp B/P (MAP) Pulse Ox O2 Delivery O2 Flow Rate FiO2 05/07/17 07:42 97.9 62 20 141/86 (104) 97 05/07/17 05:13 76.3 74 18 137/74 (95) 98 05/07/17 00:31 98.7 74 18 134/84 (101) 95 05/06/17 20:50 98.1 71 18 140/78 (98) 96 05/06/17 17:56 98.1 72 20 135/71 (92) 96 05/06/17 17:00 97.8 78 16 128/77 (94) 100 05/06/17 15:00 97.8 86 16 134/75 (94) 99 Room Air 05/06/17 13:10 97.9 81 16 129/76 (93) 99 Room Air 05/06/17 11:00 98.0 81 16 128/75 (92) 99 Room Air 05/06/17 10:23 16 05/06/17 09:57 98.0 70 16 130/81 (97) 99 Room Air 05/07/17 05/07/17 05/08/17 15:00 23:00 07:00 Intake Total 200 ml Balance 200 ml IV Total 200 ml Result Diagram: 05/07/17 0558 05/07/17 0558 Imaging Last 24 hours Impressions Liver Ultrasound 05/05/17 0000 Signed Impressions: Service Date/Time: Friday, May 05, 2017 19:39 - CONCLUSION: 1. Echogenic sludge within the gallbladder. No shadowing stones seen. 2. Probable hemangioma in the right lobe of the liver. Dax Wells MD Abdomen/Pelvis CT 05/05/17 0000 Signed Impressions: Service Date/Time: Friday, May 05, 2017 18:45 - CONCLUSION: 1. Dilation of the intra-and extrahepatic biliary system although a down to the ampulla without evidence of calcified stones. 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 Dax Wells MD A/P Problem List: (1) Choledocholithiasis ICD Codes: K80.50 - Calculus of bile duct without cholangitis or cholecystitis without obstruction Status: Acute Plan: - Pt is a 66 y/o male who was sent to the ED on 05/05/17 for jaundice and abdominal pain. - The pt has reportedly been having the symptoms since December 2016. - He follows as an outpt with Dr. 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 - Pt has hx of Hepatitis C and is reportedly a drinker but has not have alcohol in past 6 days. - He was seen by Dr. Kirkland on 05/05/17 who did blood test in his office and his labs on 05/05 noted TBili 11.3, AST 56, ALT 127, AlkPhos 215 and Lipase 3004. - Pt had Liver US (05/05) --> Echogenic sludge within the gallbladder. No shadowing stones seen. Probable hemangioma in the right lobe of the liver. - CT Abd/pelvis (05/05) --> Dilation of the intra-and extrahepatic biliary system although a down to the ampulla without evidence of calcified stones. 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 - Repeat labs in the ED noted TBili 10.7, DBili 8.4, AST 48, ALT 112, AlkPhos 240, Lipase 2477 MRCP showed dilated cbd and pt going for ERCP today. Will recheck lft in AM and d/c when ok with GI advance diet per GI (2) Hyperbilirubinemia ICD Codes: E80.6 - Other disorders of bilirubin metabolism Status: Acute (3) Elevated liver function tests ICD Codes: R79.89 - Other specified abnormal findings of blood chemistry Status: Acute Plan: - As above (4) Abdominal pain ICD Codes: R10.9 - Unspecified abdominal pain Status: Acute Plan: - As above - Pt was started on Cipro and Flagyl IV at admission - Ultram PRN for pain (5) Hepatitis C ICD Codes: B19.20 - Unspecified viral hepatitis C without hepatic coma Status: Chronic Plan: - Pt has not started on Harvoni yet for Hep C treatment as an outpt - He reports that his last alcoholic beverage was about 6 days ago. Problem Qualifiers (1) Abdominal pain: Qualified Codes: R10.84 - Generalized abdominal pain Terrence Clark MD May 07, 2017 09:22
[2017-05-07] MEDS ORDERED: LIDOCAINE HCL 1% PF 5 ML SYRINGE OTHER ONE (12:00)
[2017-05-07] MEDS ORDERED: PROPOFOL 200 MG/20 ML AMP IV ONE (12:00)
--- NOTE | 2017-05-07 12:20 | GIPROC ---
[facility] [address] [facility]. [facility], [address] ERCP PROCEDURE REPORT EXAM DATE: 05/07/2017 PATIENT NAME: Alan Saunders MR #: [id number] BIRTHDATE: 1950 ATTENDING: Lana Hall MD ORDER #: [id number] LINING CASER: Lisa Davidson Jones, Julie, Wilcox-Hassen, Alice, and Paula Herbert STATUS: inpatient INDICATIONS: The patient is a 66 yr old male here for an ERCP due to suspected ascending cholangitis, abnormal liver function test , and abnormal MRCP PROCEDURE PERFORMED: ERCP with sphincterotomy/papillotomy ERCP with removal of calculus/calculi MEDICATIONS: None and Per Anesthesia. CONSENT: The patient understands the risks and benefits of the procedure and understands that these risks include, but are not limited to: sedation, allergic reaction, infection, perforation and/or bleeding. Alternative means of evaluation and treatment include, among others: physical exam, x-rays, and/or surgical intervention. The patient elects to proceed with this endoscopic procedure. medical equipment was checked for proper function. Hand hygiene and appropriate measures for infection prevention was taken. After the risks, benefits and alternatives of the procedure were thoroughly explained, Informed was verified, confirmed and timeout was successfully executed by the treatment team. With the patient in left semi-prone position, medications were administered intravenously.The Pentax [id number] was passed from the mouth into the esophagus and further advanced from the esophagus into the stomach. From stomach scope was directed to the second portion of the duodenum. Major papilla was aligned with the duodenoscope. The scope position was confirmed fluoroscopically. Rest of the findings/therapeutics are given below. The scope was then completely withdrawn from the patient and the procedure completed. The pulse, BP, and O2 saturation were monitored and documented by the physician and the nursing staff throughout the entire procedure. The patient was cared for as planned according to standard protocol. The patient was then discharged to recovery in stable condition and with appropriate post procedure care. The ampulla was located the second portion of the duodenum. The ampulla appeared normal. There was a dilation of the CBD. A single filling defect was seen in the distal common bile duct. With guidewire in the bile duct, a large biliary sphincterotomy was performed using the sphincterotome. Using a stone extraction balloon the bile duct was swept three times. A single stone was removed from the bile duct successfully. Using a stone extraction balloon the bile duct was swept three times. Multiple stone fragments were removed from the bile duct successfully. Using a stone extraction balloon the bile duct was swept three times. A single stone was removed from the bile duct successfully. ADVERSE EVENT: There were no complications. IMPRESSIONS: Normal appearing ampulla Dilated CBD with filling defect at distal CBD, Sphincterotomy done and stone extraction by balloon. RECOMMENDATIONS: 1. Antibiotics 2. Liver enzymes 3. Surgery REPEAT EXAM: NONE Lana Hall MD eSigned: Lana Hall MD 05/07/2017 12:20 PM cc: PATIENT NAME: Alan Saunders MR#: [id number]
--- NOTE | 2017-05-07 12:36 | RADRPT ---
EXAM DATE/TIME: 05/07/2017 12:08 [facility] COMPARISON: No previous studies available for comparison. INDICATIONS : Obstructive jaundice. Sphincterotomy. Common bile duct stone removal. FLUORO TIME: 0.5 minutes IMAGE COUNT: 2 CONTRAST: Instilled by Ordering Physician MEDICAL HISTORY : None. SURGICAL HISTORY : None. ENCOUNTER: Subsequent ACUITY: 3 days PAIN SCORE: Non-responsive. LOCATION: Right upper quadrant FINDINGS: An ERCP was performed by the ordering physician. Only 2 images available. There is some dilatation of the common bile duct with questionable filling d efect distally. CONCLUSION: ERCP as above. Georges Downing MD on May 07, 2017 at 12:31 Board Certified Radiologist. This report was verified electronically.
[2017-05-07 13:16] VITALS: BP 167/86; PULSE 54; RESP 20; O2SAT 98
--- NOTE | 2017-05-07 14:38 | HHI.GIFU ---
Subjective Remarks Pt resting in bed Tolerating full liquid diet Denies nausea, vomiting Intermittent, mild abdominal pain (+) BM Objective Vitals I&O Vital Signs Date Time Temp Pulse Resp B/P (MAP) Pulse Ox O2 Delivery O2 Flow Rate FiO2 05/07/17 13:16 54 20 167/86 (113) 98 05/07/17 12:16 97.0 62 18 131/76 (94) 97 05/07/17 07:42 97.9 62 20 141/86 (104) 97 05/07/17 05:13 76.3 74 18 137/74 (95) 98 05/07/17 00:31 98.7 74 18 134/84 (101) 95 05/06/17 20:50 98.1 71 18 140/78 (98) 96 05/06/17 17:56 98.1 72 20 135/71 (92) 96 05/06/17 17:00 97.8 78 16 128/77 (94) 100 05/06/17 15:00 97.8 86 16 134/75 (94) 99 Room Air I/O 05/06/17 05/06/17 05/06/17 05/07/17 05/07/17 05/07/17 07:00 15:00 23:00 07:00 15:00 23:00 Intake Total 400 ml 300 ml 400 ml 200 ml Output Total 500 ml 600 ml Balance 400 ml 300 ml -100 ml -600 ml 200 ml Intake Oral 400 ml IV Total 400 ml 300 ml 200 ml Output Urine Total 500 ml 600 ml # Voids 1 1 # Bowel Movements 0 Laboratory Laboratory Tests Test 05/07/17 05:58 White Blood Count 6.2 Red Blood Count 4.28 Hemoglobin 13.6 Hematocrit 38.7 Mean Corpuscular Volume 90.3 Mean Corpuscular Hemoglobin 31.7 Mean Corpuscular Hemoglobin Concent 35.1 Red Cell Distribution Width 13.3 Platelet Count 254 Mean Platelet Volume 8.0 Neutrophils (%) (Auto) 50.9 Lymphocytes (%) (Auto) 22.3 Monocytes (%) (Auto) 13.5 Eosinophils (%) (Auto) 12.0 Basophils (%) (Auto) 1.3 Neutrophils # (Auto) 3.1 Lymphocytes # (Auto) 1.4 Monocytes # (Auto) 0.8 Eosinophils # (Auto) 0.7 Basophils # (Auto) 0.1 CBC Comment DIFF FINAL Differential Comment Prothrombin Time 11.0 Prothromb Time International Ratio 1.1 Activated Partial Thromboplast Time 29.9 Blood Urea Nitrogen 6 Creatinine 0.67 Random Glucose 92 Total Protein 5.5 Albumin 2.3 Calcium Level 8.0 Alkaline Phosphatase 164 Aspartate Amino Transf (AST/SGOT) 52 Alanine Aminotransferase (ALT/SGPT) 80 Total Bilirubin 6.8 Sodium Level 140 Potassium Level 3.4 Chloride Level 105 Carbon Dioxide Level 28.7 Anion Gap 6 Estimat Glomerular Filtration Rate 119 Lipase 112 Imaging Last Impressions GI Procedure 05/07/17 0000 Signed Impressions: Service Date/Time: Sunday, May 07, 2017 12:08 - CONCLUSION: ERCP as above. Georges Downing MD Cholangiopancreatography MRI 05/06/17 0000 Signed Impressions: Service Date/Time: April 14:11 - CONCLUSION: 1. There is layering sludge within the gallbladder. No definite stones are demonstrated. 2. There is abnormal dilatation the common bile that measuring approximately 1 cm. No definite intraluminal filling defects are seen. No significant biliary tract dilatation is seen. Recommend ERCP for further evaluation. 3. A few subcentimeter hepatic cysts. Probable 1.2 cm hemangioma right lobe liver. Caleb Xiao MD Liver Ultrasound 05/05/17 0000 Signed Impressions: Service Date/Time: Friday, May 05, 2017 19:39 - CONCLUSION: 1. Echogenic sludge within the gallbladder. No shadowing stones seen. 2. Probable hemangioma in the right lobe of the liver. Dax Wells MD Abdomen/Pelvis CT 05/05/17 Signed Impressions: Service Date/Time: Friday, May 05, 2017 18:45 - CONCLUSION: 1. Dilation of the intra-and extrahepatic biliary system although a down to the ampulla without evidence of calcified stones. 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 Dax Wells MD Physical Exam HEENT: Normocephalic; atraumatic (+) icterus CHEST: Even/unlabored CARDIAC: RRR ABDOMEN: Soft, nondistended, nontender; bowel sounds active EXTREMITIES: No clubbing, cyanosis, or edema. SKIN: Normal; no rash; (+) jaundice. SALES AND SERVICE ADVISOR: No focal deficits; alert and oriented times three. Assessment and Plan Plan ASSESSMENT - abd pain, jaundice, elevated lipase - poss gallstone pancreatitis. lipase now WNL. LFTs elevated obstructive pattern. CT showed bilatation biliary system. US showed GB sludge - hep c - pursuing work up for tx as outpt (04/09) --> Pt denies nausea, vomiting. Abdominal pain is mild and intermittent. S/P ERCP yesterday --> Normal appearing ampulla. Dilated CBD with filling defect at distal CBD, sphincterotomy done and stone extraction by balloon. LFTs stable today, T bili improving. Will continue to monitor. PLAN - Monitor LFTs - JEANETTE - Supportive care - Further recommendations to follow based on clinical course and results of above Pt has been seen and examined by myself and Dr. Hall and this note is written on his behalf Hope Redd May 07, 2017 14:38
[2017-05-07 16:03] VITALS: BP 139/82; PULSE 53; RESP 20; TEMP 98.1; O2SAT 97
[2017-05-07] MEDS: PANTOPRAZOLE SODIUM 40 MG VIAL IV PUSH SCH (20:12)
[2017-05-07 21:50] VITALS: BP 145/79; PULSE 63; RESP 17; TEMP 97.7; O2SAT 97
[2017-05-08 00:40] VITALS: BP 140/65; PULSE 67; RESP 18; TEMP 98; O2SAT 96
[2017-05-08] MEDS: SODIUM CHLOR 0.9% 1000 ML INJ 1,000 ML IV SCH (02:50)
[2017-05-08 04:50] VITALS: BP 159/86; PULSE 65; RESP 18; TEMP 98; O2SAT 95
[2017-05-08] MEDS: metroNIDAZOLE 500 MG INJ 100 ML IV SCH (05:08)
[2017-05-08 06:45] LABS: ALBUMIN 2.5 GM/DL (3.4-5.0); DIRECT BILIRUBIN ADULT 5.2 MG/DL (0.0-0.2)
[2017-05-08 06:47] LABS: INDIRECT BILIRUBIN 1.4 MG/DL (0.0-0.8); TOTAL BILIRUBIN ADULT 6.6 MG/DL (0.2-1.0); TOTAL PROTEIN 5.8 GM/DL (6.4-8.2)
[2017-05-08 08:00] VITALS: BP 158/92; PULSE 67; RESP 18; TEMP 98.2; O2SAT 98
[2017-05-08] MEDS: SODIUM CHLORIDE 0.9% FLUSH 10 ML FLUSH IV FLUSH SCH (09:00)
[2017-05-08] MEDS: DOCUSATE SODIUM 50 MG/SENNA 8.6 MG TAB PO SCH (09:00)
[2017-05-08] MEDS: LOSARTAN 50 MG TAB PO SCH (10:10)
[2017-05-08] MEDS ORDERED: METR1TAB76 PO (10:26)
[2017-05-08] MEDS ORDERED: CIPR500T2 PO (10:26)
--- NOTE | 2017-05-08 10:27 | HHI.DCPOC ---
Discharge Care Plan Diagnosis: (1) Choledocholithiasis (2) Hepatitis C Goals to Promote Your Health * To prevent worsening of your condition and complications * To maintain your health at the optimal level Directions to Meet Your Goals Take your medications as prescribed Follow your dietary instruction Follow activity as directed Keep your appointments as scheduled Take your immunizations and boosters as scheduled If your symptoms worsen call your PCP, if no PCP go to Urgent Care Center or Emergency Room Smoking is Dangerous to Your Health. Avoid second hand smoke Call the 24-hour hour crisis hotline for domestic abuse at Terrence Clark MD May 08, 2017 10:26
--- NOTE | 2017-05-08 10:32 | HHI.DS ---
Discharge Summary Admission Date May 05, 2017 at 18:50 Discharge Date: May 08, 2017 Admitting Diagnosis Jaundice, elevated liver function (1) Choledocholithiasis Diagnosis: Principal ICD Codes: K80.50 - Calculus of bile duct without cholangitis or cholecystitis without obstruction Status: Acute (2) Hyperbilirubinemia Diagnosis: Principal ICD Codes: E80.6 - Other disorders of bilirubin metabolism Status: Acute (3) Elevated liver function tests Diagnosis: Principal ICD Codes: R79.89 - Other specified abnormal findings of blood chemistry Status: Acute (4) Abdominal pain Diagnosis: Principal ICD Codes: R10.9 - Unspecified abdominal pain Status: Acute (5) Hepatitis C Diagnosis: Secondary ICD Codes: B19.20 - Unspecified viral hepatitis C without hepatic coma Status: Chronic Brief History 66-year-old male came to the emergency room with history of jaundice and abdominal pain. His is here with him and patient says he has been having the symptoms since December 2016. He seen GI Dr. Pfeiffer. Patient is a drinker but did not have alcohol in past 2 weeks. Today his GI specialist sent him over to the surgeon Dr. Kirkland who did blood test in his office and discovered that patient's liver function tests were elevated and urine looked abnormal. He sent the patient to the emergency room to get an MRCP. There was blood test repeated in the triage and the results are back. Patient says his pain is all over the abdomen. He has not had a bowel movement since Wednesday. Patient has been taking liquid tramadol for his abdominal pain. He is awake and answering questions appropriately. Vital signs are within normal limits. No history of nausea vomiting. Stool up until Wednesday was green in color. No aggravating or relieving factors identified for the abdominal pain or any radiation. Labs consistent with possible obstructive jaundice with dilated ducts on CT CBC/BMP: 05/07/17 0558 05/07/17 0558 Significant Findings Laboratory Tests Test 05/05/17 17:27 05/05/17 17:39 05/05/17 19:10 05/06/17 09:30 Monocytes (%) (Auto) 14.2 % (0.0-8.0) Eosinophils (%) (Auto) 5.0 % (0.0-4.0) Monocytes # (Auto) 1.5 TH/MM3 (0-0.9) Eosinophils # (Auto) 0.5 TH/MM3 (0-0.4) Albumin 3.1 GM/DL (3.4-5.0) 2.7 GM/DL (3.4-5.0) Alkaline Phosphatase 240 U/L (45-117) 198 U/L (45-117) Aspartate Amino Transf (AST/SGOT) 48 U/L (15-37) Alanine Aminotransferase (ALT/SGPT) 112 U/L (12-78) 85 U/L (12-78) Total Bilirubin 10.7 MG/DL (0.2-1.0) 8.9 MG/DL (0.2-1.0) Lipase 2477 U/L (73-393) Urine Color DARK-BROWN (YELLW/STRAW) Urine Protein 30 mg/dL (NEG-TRACE) Urine Bilirubin LARGE (NEG) Urine Bacteria FEW /hpf (NONE) Urine Mucus MANY /lpf (OCC) Direct Bilirubin 8.4 MG/DL (0.0-0.2) 7.2 MG/DL (0.0-0.2) Indirect Bilirubin 1.7 MG/DL (0.0-0.8) Total Protein 6.1 GM/DL (6.4-8.2) Test 05/06/17 11:00 05/07/17 05:58 05/08/17 05:04 Calcium Level 7.9 MG/DL (8.5-10.1) 8.0 MG/DL (8.5-10.1) Estimat Glomerular Filtration Rate 85 ML/MIN (>89) Red Blood Count 4.28 MIL/MM3 (4.50-5.90) Hematocrit 38.7 % (39.0-51.0) Monocytes (%) (Auto) 13.5 % (0.0-8.0) Eosinophils (%) (Auto) 12.0 % (0.0-4.0) Eosinophils # (Auto) 0.7 TH/MM3 (0-0.4) Blood Urea Nitrogen 6 MG/DL (7-18) Total Protein 5.5 GM/DL (6.4-8.2) 5.8 GM/DL (6.4-8.2) Albumin 2.3 GM/DL (3.4-5.0) 2.5 GM/DL (3.4-5.0) Alkaline Phosphatase 164 U/L (45-117) 166 U/L (45-117) Aspartate Amino Transf (AST/SGOT) 52 U/L (15-37) 89 U/L (15-37) Alanine Aminotransferase (ALT/SGPT) 80 U/L (12-78) 100 U/L (12-78) Total Bilirubin 6.8 MG/DL (0.2-1.0) 6.6 MG/DL (0.2-1.0) Potassium Level 3.4 MEQ/L (3.5-5.1) Direct Bilirubin 5.2 MG/DL (0.0-0.2) Indirect Bilirubin 1.4 MG/DL (0.0-0.8) Hospital Course (1) Choledocholithiasis - Pt is a 66 y/o male who was sent to the ED on 05/05/17 for jaundice and abdominal pain. - The pt has reportedly been having the symptoms since December 2016. - He follows as an outpt with Dr. 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 - Pt has hx of Hepatitis C and is reportedly a drinker but has not have alcohol in past 6 days. - He was seen by Dr. Kirkland on 05/05/17 who did blood test in his office and his labs on 05/05 noted TBili 11.3, AST 56, ALT 127, AlkPhos 215 and Lipase 3004. - Pt had Liver US (05/05) --> Echogenic sludge within the gallbladder. No shadowing stones seen. Probable hemangioma in the right lobe of the liver. - CT Abd/pelvis (05/05) --> Dilation of the intra-and extrahepatic biliary system although a down to the ampulla without evidence of calcified stones. 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 - Repeat labs in the ED noted TBili 10.7, DBili 8.4, AST 48, ALT 112, AlkPhos 240, Lipase 2477 -MRCP showed dilated cbd and pt went for ERCP 05/07. cbd stone removed with balloon and sphincterotomy done. bilirubin trending down. pt tolerating liquid diet and no abdomen pain. discussed with dr Kirkland. f/u 1-2 weeks and will recheck LFT also.. (2) Hyperbilirubinemia ICD Codes: E80.6 - Other disorders of bilirubin metabolism Status: Acute (3) Elevated liver function tests ICD Codes: R79.89 - Other specified abnormal findings of blood chemistry Status: Acute Plan: - As above (4) Abdominal pain ICD Codes: R10.9 - Unspecified abdominal pain Status: Acute Plan: - As above - Pt was started on Cipro and Flagyl IV at admission - Ultram PRN for pain (5) Hepatitis C ICD Codes: B19.20 - Unspecified viral hepatitis C without hepatic coma Status: Chronic Plan: - Pt has not started on Harvoni yet for Hep C treatment as an outpt - He reports that his last alcoholic beverage was about 6 days ago. Pt Condition on Discharge: Stable Discharge Disposition: Discharge Home Discharge Instructions DIET: Follow Instructions for: Low Fat Diet Activities you can perform: Regular-No Restrictions Follow up Referrals: Gastroenterology - 10 Days with Leatha Pfeiffer MD Surgical - 1 Week with Martín Kirkland MD Continued Medications: Ciprofloxacin (Ciprofloxacin) 500 Mg Tab 500 MG PO BID for Infection for 7 Days, #14 TAB 0 Refills (This prescription has been renewed) Lansoprazole (Lansoprazole) 30 Mg Capdr 30 MG PO BID, CAP 0 Refills Losartan (Losartan) 50 Mg Tab 50 MG PO DAILY for Blood Pressure Management, #30 TAB 0 Refills Metronidazole (Metronidazole) 500 Mg Tab 500 MG PO TID for Infection for 7 Days, TAB 0 Refills (This prescription has been renewed) Tramadol (Tramadol) 50 Mg Tab 50 MG PO Q6H PRN for PAIN, TAB 0 Refills Terrence Clark MD May 08, 2017 10:32
--- NOTE | 2017-05-08 23:10 | EKG ---
Date Performed: 05/07/2017 Time Performed: 07:34:34 PTAGE: 66 years EKG: Sinus rhythm NORMAL ECG NO PREVIOUS TRACING DOCTOR: Paulino Floyd Interpretating Date/Time 05/08/2017 23:08:47
== END 2017-05-08 13:30 | disposition home or self-care (01) | DRG 445 ==
LOC: NEPD 16:13 → NEDA 18:50 → NEDH 22:50 → N05A 05-06 17:15
PROVIDERS: ADMIT Hospitalist; ATTEND Hospitalist
PROC: BF131ZZ Fluoroscopy of Gallbladder and Bile Ducts using Low Osmolar Contrast (ICD-10-PCS; 2017-05-07)
PROC: 0FC98ZZ Extirpation of Matter from Common Bile Duct, Via Natural or Artificial Opening Endoscopic (ICD-10-PCS; principal; 2017-05-07 11:38)
DX: K80.50 Calculus of bile duct without cholangitis or cholecystitis without obstruction (principal); Q43.3 Congenital malformations of intestinal fixation; I10 Essential (primary) hypertension; B19.20 Unspecified viral hepatitis C without hepatic coma; E80.7 Disorder of bilirubin metabolism, unspecified; F17.290 Nicotine dependence, other tobacco product, uncomplicated; D18.03 Hemangioma of intra-abdominal structures; K21.9 Gastro-esophageal reflux disease without esophagitis; K44.9 Diaphragmatic hernia without obstruction or gangrene
CPT/HCPCS: 74177; 74181; 74330; 76377; 76705; 80048; 80053; 80076; 81001; 82105; 82248; 83690; 85025; 85610; 85730; 93005; C1769; C9113; J0744; J7030; J7120; Q9967

== ENCOUNTER → 2017-06-29 | Day surgery (SDC) | payer MEDICARE ==
[~2017-06-29] VITALS: Ht 160 cm; Wt 70.3 kg
[~2017-06-29] MED LIST: *ONDANSETRON 4 MG VIAL PERIprocedural Use ONLY ONE; *morphine SULFATE 4 MG/ML PERIprocedure ONLY ONE; ACETAMINOPHEN 1000 MG/100 ML 100 ML IV SCH; ALPR1TAB3 PO; BUPIVACAINE/EPINEPHRINE 0.5% PF 30 ML VIAL ONE; CHLORHEXIDINE GLUCONATE 2 % 1 PACK (2 CLOTHS) TOPICAL PRN; DEXAMETHASONE SOD PHOS 4 MG/ML VIAL IV ONE; DO NOT ADM ANY ANTICOAGULANT DRUGS PRN; GLYCOPYRROLATE 1 MG/5 ML SYRINGE IV PUSH ONE; KETOROLAC TROMETHAMINE 30 MG/ML (IVP) VIAL IV PUSH ONE; KETOROLAC TROMETHAMINE 30 MG/ML (IVP) VIAL ONE; LACTATED RINGER'S 1000 ML IV PRN; LANS30CA PO; LIDOCAINE HCL 1% PF 5 ML SYRINGE OTHER ONE; LOSA50TA PO; METOPROLOL TARTRATE 25 MG TAB PO PRN; MIDAZOLAM HCL 2 MG/2 ML VIAL ONE; MORPHINE SULFATE 4 MG/ML INJ IV PUSH PRN; NEOSTIGMINE 5 MG/5 ML SYRINGE IV PUSH ONE; ONDANSETRON HCL 4 MG/2 ML VIAL IV ONE; ONDANSETRON HCL 4 MG/2 ML VIAL IV PUSH PRN; PHENYLEPH/NS 1000 MCG/10 ML SYR IV ONE; POVIDONE IODINE 5% (ANTISEPSIS KIT) 4 APPLICATIONS EACH NARE PRN; PROPOFOL 200 MG/20 ML AMP IV ONE; ROCURONIUM INJ 50 MG/5 ML SYRINGE IV PUSH ONE; SODIUM CHLORID 0.9% 500 ML IV PRN; SODIUM CHLORIDE 0.9% FLUSH 10 ML FLUSH IV FLUSH PRN; SODIUM CHLORIDE 0.9% FLUSH 10 ML FLUSH IV FLUSH SCH; ceFAZolin 2 GM PREMIX 50 ML IV SCH; ePHEDrine/NS 25 MG/5 ML SYRINGE IV ONE
[2017-06-29] MEDS: metroNIDAZOLE 500 MG INJ 100 ML IV SCH (07:40)
--- NOTE | 2017-06-29 10:00 | PD.OP ---
cc: Martín Kirkland MD Operative Report Date of Surgery: June 29, 2017 Preoperative Diagnosis: (1) Chronic cholecystitis (2) Choledocholithiasis (3) Hepatitis C Postoperative Diagnosis: (1) Choledocholithiasis (2) Chronic cholecystitis (3) Hepatitis C Procedure: Laparoscopic cholecystectomy Laparoscopic core needle liver biopsy 2 Anesthesia: General Surgeon: Martín Kirkland Director Medical Affairs(s): Gt MCELROY Operation and Findings: Complications: None apparent EBL: 100 cc Operative findings: Chronically inflamed gallbladder with wall thickening. Extensive meticulous dissection requiring multiple instruments and placement of a fifth port and dominant flex liver retractor was required. Liver appeared fatty but no evidence of fibrosis or cirrhosis. Procedure in detail: The patient was taken to the operating room and placed in the supine position. General endotracheal anesthesia was induced. The abdomen was prepped and draped in usual sterile fashion and a surgical timeout was performed to verify correct patient procedure and site. Appropriate perioperative antibiotics were administered. Local anesthetic was injected in the skin and subcutaneous tissue superior to the umbilicus and a 5 mm incision performed. The abdomen was entered using the Optiview 5 mm trocar with direct laparoscopic visualization. The abdomen was then insufflated to 15 mmHg with CO2 gas which the patient tolerated well. Next a 12 mm port was placed in the epigastrium and two 5 mm ports in the right upper quadrant and right lateral abdomen. The patient was placed in reverse Trendelenburg position and turned slightly to the left. There were omental adhesions to the gallbladder which were taken down with electrocautery. The gallbladder was somewhat contracted with a very thickened wall and extensive chronic inflammation. Attention was turned to the right upper quadrant and the dome of the gallbladder was grasped and retracted cephalad. The infundibulum was retracted laterally to expose Calot's triangle. Cystic duct and artery were not immediately visible. There was chronic thickening in the area of the infundibulum. Extensive meticulous blunt dissection and judicious use of electrocautery including dissection with suction quality assurance auditor was used to attempt to identify the cystic duct. Due to the induration and scarring was not immediately identified. Then performed dome down dissection of the gallbladder from the liver using electrocautery. This required placement of the fifth port in the left upper abdomen and the cecilio flex liver retractor used to retract the liver. There was entry into the gallbladder one point with some spillage of bile. Further dissection did reveal the cystic artery entering the gallbladder and it was clipped proximally and distally and transected. Finally , the cystic duct was seen to be directly entering the gallbladder and this was the only remaining attachment. The cystic duct was thickened and I placed a #1 PDS Endoloop proximally and distally and transected the gallbladder. The gallbladder was then removed from the abdomen using an Endo Catch bag. The clips and Endoloop were in place on the cystic duct and cystic artery stumps with no bleeding or bile leakage. The right upper quadrant was copiously irrigated. A separate small incision was made in the right upper abdomen. The WalkHubty gun was used to obtain two core needle liver biopsies and hemostasis was achieved at these sites. At this point, the abdomen was allowed to desufflate and trochars were removed. The fascia at the 12 mm port site was closed with 0 Vicryl suture. Skin was closed with subcuticular 4-0 Monocryl as well as Dermabond. The patient tolerated the procedure well and was extubated and taken to PACU in stable condition. All sponge and instrument counts were correct. Martín Kirkland MD June 29, 2017 10:00
[2017-06-29 11:15] VITALS: BP 129/77; PULSE 63; RESP 16; TEMP 98.7; O2SAT 98
== END | disposition home or self-care (01) ==
LOC: HSDC 05:54
PROVIDERS: ATTEND Surgery
DX: K80.44 Calculus of bile duct with chronic cholecystitis without obstruction (principal); B19.20 Unspecified viral hepatitis C without hepatic coma; R06.00 Dyspnea, unspecified; K31.9 Disease of stomach and duodenum, unspecified; A04.8 Other specified bacterial intestinal infections; M77.11 Lateral epicondylitis, right elbow; R10.9 Unspecified abdominal pain; K92.1 Melena; R11.2 Nausea with vomiting, unspecified; R03.0 Elevated blood-pressure reading, without diagnosis of hypertension; K64.8 Other hemorrhoids
CPT/HCPCS: 00790; 47379; 47562; 88304; 88307; 88313; J0131; J0690; J1100; J1885; J2250; J2270; J2370; J2405; J2710; J3010; J7120